=== PATIENT | female | born 1980 | race Caucasian/White ===

== ENCOUNTER 2024-08-28 11:28 | Outpatient (AMB) | payer OTHER, SELFPAY ==
--- NOTE | 2024-08-28 11:38 | MHC.PC.OV ---
Vital Signs 08/28/24 11:45 08/28/24 11:58 Height 4 ft 11.65 in Weight 329 lb 4 oz BMI 65.1 BP 194/115 H 192/106 H Blood Pressure Location Lt brachial Lt brachial Position Sitting Sitting Respiration 16 Pulse 62 Pulse Source Pulse Oximeter Pulse Oximetry (%) 98 Oxygen Delivery Method Room Air Intake Visit Reasons: est/ blood pressure meds est care Intake Note: New patient visit Allergies No Known Allergies Allergy (Verified 08/28/24 11:39) Tobacco use date assessed: 08/28/24 Dental Screening Dental Screen Date: 08/28/24 Did you have a dental visit in the last 12 months?: Yes Did you have a dental problem in the last 6 months where you did not have access to dental care?: No Was dental information given to patient?: Patient has dentist HPI HPI Comments History of Present Illness Details 44 year old female with a past medical history of hypertension, anxiety presenting to [facility] HTN: On metoprolol tartrate 100mg daily. When she was initially placed on BP medication her heart rate was high. no arrythmia. Blood pressure is markedly elevated today. No headaches or vision changes Anxiety/depression: On paxil. She has been out of medication for the past 3 weeks and has been feeling increasingly anxious History of anemia. History of heavy menses. 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 HEENT: Denies changes in vision and hearing. RESPIRATORY:cough x 2 weeks, head congestion CV: Denies palpitations and CP GI: Denies abdominal pain, nausea, vomiting and diarrhea. : Denies dysuria and urinary frequency. MSK: Denies new myalgia and joint pain. SKIN: Denies rash and pruritus. NEUROLOGICAL: Denies headache PSYCHIATRIC: Denies recent changes in mood. PHYSICAL EXAM: GENERAL: Alert and oriented x 3. NAD EYES: EOMI. Anicteric. HENT: Moist mucous membranes. No scleral icterus. No cervical lymphadenopathy. LUNGS: Clear to auscultation bilaterally. CARDIOVASCULAR: Regular rate and rhythm. No murmur. No JVD. ABDOMEN: Soft, non-tender +bs EXTREMITIES: No edema. Non-tender. SKIN: No rashes or lesions. Warm. NEUROLOGIC: No focal neurological deficits. CN II-XII grossly intact PSYCHIATRIC: Cooperative. Appropriate mood and affect [facility] Surgical History Status post osteotomy Social History Housing: House Alcohol intake: never Patient Tobacco Use Status: Never used Tobacco e-Cigarette/Vaping Use: Never Used Second Hand Smoke Exposure: No service: No Current occupational status: unemployed Cognitive needs: No Hearing needs: No Vision needs: Yes (glasses) Questionnaire PHQ-9 Over the last 2 weeks, how often have you been bothered by any of the following problems? 1. Little interest or pleasure in doing things: not at all 2. Feeling down, depressed, or hopeless: not at all 3. Trouble falling or staying asleep, or sleeping too much: not at all 4. Feeling tired or having little energy: not at all 5. Poor appetite or overeating: not at all 6. Feeling bad about yourself - or that you are a failure or have let yourself or your family down: not at all 7. Trouble concentrating on things, such as reading the newspaper or watching television: not at all 8. Moving or speaking so slowly that other people could have noticed. Or the opposite - being so fidgety or restless that you have been moving around a lot more than usual: not at all 9. Thoughts that you would be better off or of hurting yourself in some way: not at all Total score: 0 Depression Screening Interpretation: Negative Depression Screening Done: Yes 82415 - PHQ-9 Billing: Yes Source: Developed by Drs. Harshil Plascencia, Zofia Dela Cruz, Ildefonso Chambers and colleagues, with an educational samantha from [employer]. Thrive Questionnaire Date Thrive assessed: 08/21/24 I am a: Patient What is your living situation today?: I have a steady place to live Within the past 12 months, did the food you bought not last and you didn't have the money to get more?: I choose not to answer this question Within the past 12 months, did you worry whether your food would run out before you got money to buy more?: I choose not to answer this question Do you have trouble paying for medicines?: No Do you have trouble getting transportation to medical appointments?: No Do you have trouble paying your heating and electricity bill?: No Do you have trouble taking care of your child, family member or friend?: No Do you have trouble with day-to-day activities such as bathing, preparing meals, shopping, managing finances, etc.?: No Are you currently unemployed and looking for a job?: Yes Are you interested in more education?: Yes Please select the resources that you would like help with: None Currently or been in a relationship where the following occur: No concerns reported THRIVE Score: 0 AUDIT C Alcohol Use Questionnaire (AUDIT-C) 1. How often do you have a drink containing alcohol?: Never 2. How many drinks containing alcohol do you have on a typical day when you are drinking?: 1 or 2 3. How often do you have six or more drinks on one occasion?: Never Total Score: 0 JOHANNY-7 AMB Questionnaire JOHANNY-7 Date JOHANNY - 7 assessed: 08/28/24 Feeling nervous, anxious, or on edge: 3 = Nearly every day Not being able to stop or control worryin = Nearly every day Worrying too much about different things: 3 = Nearly every day Trouble relaxin = Nearly every day Being so restless that it is hard to sit still: 3 = Nearly every day Becoming easily annoyed or irritable: 3 = Nearly every day Feeling afraid as if something awful might happen: 3 = Nearly every day Total JOHANNY-7 score (0-4 normal; 5-9 mild; 10-14 moderate; 15-21 severe): 21 Source: Developed by Drs. Harshil Plascencia, Zofia Dela Cruz, Ildefonso Chambers and colleagues, with an educational samantha from [employer]. JOHANNY-7 Assessment Billing JOHANNY-7 Assessment Tool: JOHANNY-7 Assessment 57373 Physical exam (Primary Care) Vital Signs: Last Vital Signs Pulse 62 08/28/24 11:45 Resp 16 08/28/24 11:45 BP 194/115 H 08/28/24 11:45 Pulse Ox 98 08/28/24 11:45 Oxygen Delivery Method Room Air 08/28/24 11:45 BMI result Body Mass Index 65.1 Tobacco/Smoking Status: Tobacco use Status Tobacco use date assessed 08/28/24 08/28/24 11:41 Patient Tobacco Use Status Never used Tobacco 08/28/24 11:46 e-Cigarette/Vaping Use Never Used 08/28/24 11:46 PHQ-9: PHQ-9 Score PHQ-9: Total score 0 08/28/24 11:46 Depression Screening Interpretation: Negative Thrive Assessment: Date of Thrive Assessment Date Thrive assessed 08/21/24 08/28/24 11:41 Currently or been in a relationship where the following occur: No concerns reported Coding Level of Care Code Est Pt Level 4 (51465) Complex EM visit Add On G2211 Diagnoses Primary hypertension I10 Hypertension type: primary hypertension Anxiety F41.9 Additional Codes JOHANNY-7 Assessment Billing - JOHANNY-7 Assessment Tool: JOHANNY-7 Assessment 16492 ([id number]) PHQ-9 - 47304 - PHQ-9 Billing: Yes ([id number]) Assessment & Plan Assessment & Plan (1) Hypertension: Code(s): I10 - Essential (primary) hypertension Category: Medical Qualifiers: Hypertension type: primary hypertension Qualified Code(s): I10 - Essential (primary) hypertension Plan: Uncontrolled Badly needs to lose weight. Recommend consideration of GLP medication if insurance would approve For now switch metoprolol to atenolol. If BP remains high add amlodipine. Return in 2 weeks for follow up (2) Anxiety: Code(s): F41.9 - Anxiety disorder, unspecified Category: Medical Plan: Generally stable on paxil but has been out. Refilled today Orders: Orders Complete Blood Count Auto Diff Today F41.9 - Anxiety disorder, unspecified, I10 - Essential (primary) hypertension, R09.81 - Nasal congestion, Z13.228 - Encounter for screening for other metabolic disorders, Z86.2 - Personal history of diseases of the blood and blood-forming organs and certain disorders involving the immune mechanism TSH reflex Free T4 Today F41.9 - Anxiety disorder, unspecified, I10 - Essential (primary) hypertension, R09.81 - Nasal congestion, Z13.228 - Encounter for screening for other metabolic disorders, Z86.2 - Personal history of diseases of the blood and blood-forming organs and certain disorders involving the immune mechanism Hemoglobin A1c Today F41.9 - Anxiety disorder, unspecified, I10 - Essential (primary) hypertension, R09.81 - Nasal congestion, Z13.228 - Encounter for screening for other metabolic disorders, Z86.2 - Personal history of diseases of the blood and blood-forming organs and certain disorders involving the immune mechanism Comprehensive Met. Panel Today F41.9 - Anxiety disorder, unspecified, I10 - Essential (primary) hypertension, R09.81 - Nasal congestion, Z13.228 - Encounter for screening for other metabolic disorders, Z86.2 - Personal history of diseases of the blood and blood-forming organs and certain disorders involving the immune mechanism Lipid Panel Today F41.9 - Anxiety disorder, unspecified, I10 - Essential (primary) hypertension, R09.81 - Nasal congestion, Z13.228 - Encounter for screening for other metabolic disorders, Z86.2 - Personal history of diseases of the blood and blood-forming organs and certain disorders involving the immune mechanism Medications: Eduardo Ingram (semaglutide (weight loss)) administer weeks 1 through 4 of therapy 0.25 mg (0.5 mL) subcut QWEEK 2 mL 0RF NS paroxetine HCl 20 mg PO DAILY 90 tabs 3RF atenolol 50 mg PO DAILY 90 tabs 3RF amlodipine 5 mg PO DAILY 90 tabs 3RF azithromycin For 250 mg dose pack: take 500 mg today (day 1), then 250 mg for 4 days (days 2-5) PO 6 tabs 0RF
[2024-08-28 11:45] VITALS: BP 194/115; PULSE 62; RESP 16; O2SAT 98; BMI 65.1
[2024-08-28 11:58] VITALS: BP 192/106
== END 2024-08-28 12:13 | disposition home or self-care (01) ==
PROVIDERS: PCP Nurse Practitioner Family; Visit Provider Internal Medicine
DX: I10 Essential (primary) hypertension (principal); F41.9 Anxiety disorder, unspecified

== ENCOUNTER → 2024-08-28 11:28 | Outpatient (BNVA) | payer OTHER, SELFPAY | PROVIDERS: PCP Nurse Practitioner Family; Visit Provider Internal Medicine | DX: I10 Essential (primary) hypertension (principal); F41.9 Anxiety disorder, unspecified | CPT/HCPCS: 96127; 99212 ==

== ENCOUNTER 2024-09-11 08:45 | Outpatient (AMB) | payer OTHER, SELFPAY ==
--- NOTE | 2024-09-11 09:08 | MHC.PC.OV ---
Vital Signs 09/11/24 09:17 09/11/24 09:28 Height 4 ft 11.65 in Weight 329 lb BMI 65.0 BP 180/100 H 167/80 H Blood Pressure Location Rt brachial Lt brachial Position Sitting Sitting Pulse 61 Pulse Source Pulse Oximeter Pulse Oximetry (%) 98 Oxygen Delivery Method Room Air Intake Visit Reasons: f/u blood pressure Intake Note: HTN follow up Urogynaecologist Required: No Allergies No Known Allergies Allergy (Verified 09/11/24 09:16) Tobacco use date assessed: 08/28/24 Dental Screening Dental Screen Date: 08/28/24 HPI HPI Comments History of Present Illness Details 44 year old female with a past medical history of hypertension, anxiety presenting for follow up HTN: last visit metoprolol tartrate 100mg daily transitioned to atenolol 50mg daily. BP improved but still uncontrolled.. When she was initially placed on BP medication her heart rate was high. no arrythmia. Blood pressure is markedly elevated today. No headaches or vision changes Anxiety/depression: On paxil-stable. recently restarted, was out of medications. History of anemia. History of heavy menses. 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 HEENT: Denies changes in vision and hearing. RESPIRATORY:cough x 2 weeks, head congestion CV: Denies palpitations and CP GI: Denies abdominal pain, nausea, vomiting and diarrhea. : Denies dysuria and urinary frequency. MSK: Denies new myalgia and joint pain. SKIN: Denies rash and pruritus. NEUROLOGICAL: Denies headache PSYCHIATRIC: Denies recent changes in mood. PHYSICAL EXAM: GENERAL: Alert and oriented x 3. NAD EYES: EOMI. Anicteric. HENT: Moist mucous membranes. No scleral icterus. No cervical lymphadenopathy. LUNGS: Clear to auscultation bilaterally. CARDIOVASCULAR: Regular rate and rhythm. No murmur. No JVD. ABDOMEN: Soft, non-tender +bs EXTREMITIES: No edema. Non-tender. SKIN: No rashes or lesions. Warm. NEUROLOGIC: No focal neurological deficits. CN II-XII grossly intact PSYCHIATRIC: Cooperative. Appropriate mood and affect PFSH Surgical History Status post osteotomy Social History Housing: House Alcohol intake: never Patient Tobacco Use Status: Never used Tobacco e-Cigarette/Vaping Use: Never Used Second Hand Smoke Exposure: No service: No Current occupational status: unemployed Cognitive needs: No Hearing needs: No Vision needs: Yes (glasses) Questionnaire Thrive Questionnaire Date Thrive assessed: 08/21/24 I am a: Patient What is your living situation today?: I have a steady place to live Within the past 12 months, did the food you bought not last and you didn't have the money to get more?: I choose not to answer this question Within the past 12 months, did you worry whether your food would run out before you got money to buy more?: I choose not to answer this question Do you have trouble paying for medicines?: No Do you have trouble getting transportation to medical appointments?: No Do you have trouble paying your heating and electricity bill?: No Do you have trouble taking care of your child, family member or friend?: No Do you have trouble with day-to-day activities such as bathing, preparing meals, shopping, managing finances, etc.?: No Are you currently unemployed and looking for a job?: Yes Are you interested in more education?: Yes Please select the resources that you would like help with: None Currently or been in a relationship where the following occur: No concerns reported THRIVE Score: 0 JOHANNY-7 AMB Questionnaire JOHANNY-7 Date JOHANNY - 7 assessed: 08/28/24 Source: Developed by Drs. Harshil Plascnecia, Zofia Dela Cruz, Ildefonso Chambers and colleagues, with an educational samantha from [employer]. Physical exam (Primary Care) Vital Signs: Last Vital Signs Pulse 61 09/11/24 09:17 BP 167/80 H 09/11/24 09:28 Pulse Ox 98 09/11/24 09:17 Oxygen Delivery Method Room Air 09/11/24 09:17 BMI result Body Mass Index 65.0 Tobacco/Smoking Status: Tobacco use Status Tobacco use date assessed 08/28/24 09/11/24 09:13 Patient Tobacco Use Status Never used Tobacco 09/11/24 09:13 e-Cigarette/Vaping Use Never Used 09/11/24 09:13 Thrive Assessment: Date of Thrive Assessment Date Thrive assessed 08/21/24 09/11/24 09:13 Currently or been in a relationship where the following occur: No concerns reported Coding Level of Care Code Est Pt Level 4 (77812) Complex EM visit Add On G2211 Diagnoses Primary hypertension I10 Hypertension type: primary hypertension Anxiety F41.9 Assessment & Plan Assessment & Plan (1) Hypertension: Code(s): I10 - Essential (primary) hypertension Category: Medical Qualifiers: Hypertension type: primary hypertension Qualified Code(s): I10 - Essential (primary) hypertension Plan: improved but still uncontrolled Add amlodipine 5mg daily weight loss imperative. Hoping for GLP. She has started to exercise and decreased caloric intake without successful weight loss thus far (2) Anxiety: Code(s): F41.9 - Anxiety disorder, unspecified Category: Medical Plan: Improving back on Paxil Medications: New Zepbound (tirzepatide (weight loss)) for 4 weeks 2.5 mg (0.5 mL) subcut QWEEK 2 mL 3RF NS E66.9 - Obesity, unspecified, I10 - Essential (primary) hypertension Discontinued Wegovy (semaglutide (weight loss)) administer weeks 1 through 4 of therapy Discontinued Reason: Doctor's Order 0.25 mg (0.5 mL) subcut QWEEK 2 mL 0RF NS
[2024-09-11 09:17] VITALS: BP 180/100; PULSE 61; O2SAT 98; BMI 65.0
[2024-09-11 09:28] VITALS: BP 167/80
== END 2024-09-11 09:42 | disposition home or self-care (01) ==
PROVIDERS: PCP Internal Medicine; Visit Provider Internal Medicine
DX: I10 Essential (primary) hypertension (principal); F41.9 Anxiety disorder, unspecified

== ENCOUNTER → 2024-09-11 08:45 | Outpatient (BNVA) | payer OTHER, SELFPAY | PROVIDERS: PCP Internal Medicine; Visit Provider Internal Medicine | DX: I10 Essential (primary) hypertension (principal); F41.9 Anxiety disorder, unspecified | CPT/HCPCS: 99212 ==

== ENCOUNTER 2024-09-11 10:06 | Outpatient (REF) | payer OTHER, SELFPAY | END 2024-09-11 10:07 | disposition home or self-care (01) | LOC: HO.WFDLDS 10:06 | PROVIDERS: Visit Provider Internal Medicine | DX: Z13.89 Encounter for screening for other disorder (principal) ==

== ENCOUNTER 2024-09-28 11:11 | Outpatient (AMB) | payer OTHER, SELFPAY ==
--- NOTE | 2024-09-28 11:24 | A.OFFPC_ITS ---
Vital Signs 09/28/24 11:27 09/28/24 11:37 Height 4 ft 11.65 in Weight 327 lb 4 oz BMI 64.7 BP 156/77 H 141/77 H Blood Pressure Location Lt brachial Lt brachial Position Sitting Sitting Pulse 54 Pulse Source Pulse Oximeter Pulse Oximetry (%) 99 Oxygen Delivery Method Room Air Intake Visit Reasons: BP follow up Intake Note: Blood pressure follow up Cardiothoracic Surgeon Required: No Allergies No Known Allergies Allergy (Verified 09/28/24 11:27) Tobacco use date assessed: 08/28/24 Dental Screening Dental Screen Date: 08/28/24 HPI HPI Comments History of Present Illness Details 44 year old female with a past medical h istory of hypertension, anxiety presenting for follow up HTN: On atenolol 50mg daily, placed on amlodipine 5mg last visit. Much better control still uncontrolled. Making dietary and lifestlye efforts. Losing weight. Anxiety/depression: On paxil-stable. History of anemia. History of heavy menses. 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 HEENT: Denies changes in vision and hearing. RESPIRATORY:cough x 2 weeks, head congestion CV: Denies palpitations and CP GI: Denies abdominal pain, nausea, vomiting and diarrhea. : Denies dysuria and urinary frequency. MSK: Denies new myalgia and joint pain. SKIN: Denies rash and pruritus. NEUROLOGICAL: Denies headache PSYCHIATRIC: Denies recent changes in mood. PHYSICAL EXAM: GENERAL: Alert and oriented x 3. NAD EYES: EOMI. Anicteric. HENT: Moist mucous membranes. No scleral icterus. No cervical lymphadenopathy. LUNGS: Clear to auscultation bilaterally. CARDIOVASCULAR: Regular rate and rhythm. No murmur. No JVD. ABDOMEN: Soft, non-tender +bs EXTREMITIES: No edema. Non-tender. SKIN: No rashes or lesions. Warm. NEUROLOGIC: No focal neurological deficits. CN II-XII grossly intact PSYCHIATRIC: Cooperative. Appropriate mood and affect [facility] Surgical History Status post osteotomy Social History Housing: House Alcohol intake: never Patient Tobacco Use Status: Never used Tobacco e-Cigarette/Vaping Use: Never Used Second Hand Smoke Exposure: No service: No Current occupational status: unemployed Cognitive needs: No Hearing needs: No Vision needs: Yes (glasses) Questionnaire Thrive Questionnaire Date Thrive assessed: 08/21/24 I am a: Patient What is your living situation today?: I have a steady place to live Within the past 12 months, did the food you bought not last and you didn't have the money to get more?: I choose not to answer this question Within the past 12 months, did you worry whether your food would run out before you got money to buy more?: I choose not to answer this question Do you have trouble paying for medicines?: No Do you have trouble getting transportation to medical appointments?: No Do you have trouble paying your heating and electricity bill?: No Do you have trouble taking care of your child, family member or friend?: No Do you have trouble with day-to-day activities such as bathing, preparing meals, shopping, managing finances, etc.?: No Are you currently unemployed and looking for a job?: Yes Are you interested in more education?: Yes Please select the resources that you would like help with: None Currently or been in a relationship where the following occur: No concerns reported THRIVE Score: 0 JOHANNY-7 AMB Questionnaire JOHANNY-7 Date JOHANNY - 7 assessed: 08/28/24 Source: Developed by Drs. Harshil Plascencia, Zofia Dela Cruz, Ildefonso Chambers and colleagues, with an educational samantha from [employer]. Physical exam (Primary Care) Vital Signs: Last Vital Signs Pulse 54 09/28/24 11:27 BP 141/77 H 09/28/24 11:37 Pulse Ox 99 09/28/24 11:27 Oxygen Delivery Method Room Air 09/28/24 11:27 BMI result Body Mass Index 64.7 Tobacco/Smoking Status: Tobacco use Status Tobacco use date assessed 08/28/24 09/28/24 11:25 Patient Tobacco Use Status Never used Tobacco 09/28/24 11:25 e-Cigarette/Vaping Use Never Used 09/28/24 11:25 Thrive Assessment: Date of Thrive Assessment Date Thrive assessed 08/21/24 09/28/24 11:25 Currently or been in a relationship where the following occur: No concerns reported Coding Level of Care Code Est Pt Level 4 (45170) Diagnoses Primary hypertension I10 Hypertension type: primary hypertension Anxiety F41.9 Assessment & Plan Assessment & Plan (1) Hypertension: Code(s): I10 - Essential (primary) hypertension Category: Medical Qualifiers: Hypertension type: primary hypertension Qualified Code(s): I10 - Essential (primary) hypertension Plan: Improving control. No edema with current dose of norvasc will increase to 10mg daily. Nataly sent-recently approved (2) Anxiety: Code(s): F41.9 - Anxiety disorder, unspecified Category: Medical Plan: stable on paxil Medications: New amlodipine 10 mg PO DAILY 90 tabs 3RF
[2024-09-28 11:27] VITALS: BP 156/77; PULSE 54; O2SAT 99; BMI 64.7
[2024-09-28 11:37] VITALS: BP 141/77
== END 2024-09-28 12:05 | disposition home or self-care (01) ==
PROVIDERS: PCP Internal Medicine; Visit Provider Internal Medicine
DX: I10 Essential (primary) hypertension (principal); F41.9 Anxiety disorder, unspecified

== ENCOUNTER → 2024-09-28 11:11 | Outpatient (BNVA) | payer OTHER, SELFPAY | PROVIDERS: PCP Internal Medicine; Visit Provider Internal Medicine | DX: I10 Essential (primary) hypertension (principal); F41.9 Anxiety disorder, unspecified | CPT/HCPCS: 99212 ==

== ENCOUNTER 2024-10-30 09:00 | Outpatient (AMB) | payer OTHER, SELFPAY ==
--- NOTE | 2024-10-30 09:10 | MHC.PC.OV ---
Vital Signs 10/30/24 09:15 10/30/24 09:25 Height 4 ft 11.65 in Weight 321 lb BMI 63.4 BP 171/87 H 178/90 H Blood Pressure Location Lt brachial Lt brachial Position Sitting Sitting Pulse 79 Pulse Source Pulse Oximeter Pulse Oximetry (%) 97 Oxygen Delivery Method Room Air Intake Visit Reasons: BP follow up Intake Note: Blood pressure follow. Plan was to take Wegovy, but it needed a prior auth. The pharmacy ran the Zepbound and insurance ended up approving it. She will start on Saturday. 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 Making dietary and lifestlye efforts. Losing weight-6 pounds since last visit. Was on wegovy x 2 months now insurance covering [employer] Anxiety/depression: On paxil-stable. History of anemia. History of heavy menses. 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 HEENT: Denies changes in vision and hearing. RESPIRATORY:cough x 2 weeks, head congestion CV: Denies palpitations and CP GI: Denies abdominal pain, nausea, vomiting and diarrhea. : Denies dysuria and urinary frequency. MSK: Denies new myalgia and joint pain. SKIN: Denies rash and pruritus. NEUROLOGICAL: Denies headache PSYCHIATRIC: Denies recent changes in mood. PHYSICAL EXAM: GENERAL: Alert and oriented x 3. NAD EYES: EOMI. Anicteric. HENT: Moist mucous membranes. No scleral icterus. No cervical lymphadenopathy. LUNGS: Clear to auscultation bilaterally. CARDIOVASCULAR: Regular rate and rhythm. No murmur. No JVD. ABDOMEN: Soft, non-tender +bs EXTREMITIES: No edema. Non-tender. SKIN: No rashes or lesions. Warm. NEUROLOGIC: No focal neurological deficits. CN II-XII grossly intact PSYCHIATRIC: Cooperative. Appropriate mood and affect [facility] Surgical History Status post osteotomy Social History Housing: House Alcohol intake: never Patient Tobacco Use Status: Never used Tobacco e-Cigarette/Vaping Use: Never Used Second Hand Smoke Exposure: No service: No Current occupational status: unemployed Cognitive needs: No Hearing needs: No Vision needs: Yes (glasses) Questionnaire PHQ-9 Over the last 2 weeks, how often have you been bothered by any of the following problems? 1. Little interest or pleasure in doing things: not at all 2. Feeling down, depressed, or hopeless: not at all 3. Trouble falling or staying asleep, or sleeping too much: not at all 4. Feeling tired or having little energy: not at all 5. Poor appetite or overeating: not at all 6. Feeling bad about yourself - or that you are a failure or have let yourself or your family down: not at all 7. Trouble concentrating on things, such as reading the newspaper or watching television: not at all 8. Moving or speaking so slowly that other people could have noticed. Or the opposite - being so fidgety or restless that you have been moving around a lot more than usual: not at all 9. Thoughts that you would be better off or of hurting yourself in some way: not at all Total score: 0 Depression Screening Interpretation: Negative Depression Screening Done: Yes 68227 - PHQ-9 Billing: Yes Source: Developed by Drs. Harshil Plascencia, Zofia Dela Cruz, Ildefonso Chambers and colleagues, with an educational samantha from [employer]. Thrive Questionnaire Date Thrive assessed: 10/23/24 I am a: Patient What is your living situation today?: I have a steady place to live Within the past 12 months, did the food you bought not last and you didn't have the money to get more?: Never true Within the past 12 months, did you worry whether your food would run out before you got money to buy more?: Never true Do you have trouble paying for medicines?: No Do you have trouble getting transportation to medical appointments?: No Do you have trouble paying your heating and electricity bill?: No Do you have trouble taking care of your child, family member or friend?: No Do you have trouble with day-to-day activities such as bathing, preparing meals, shopping, managing finances, etc.?: No Are you currently unemployed and looking for a job?: Yes Are you interested in more education?: Yes Please select the resources that you would like help with: None Currently or been in a relationship where the following occur: No concerns reported THRIVE Score: 0 AUDIT C Alcohol Use Questionnaire (AUDIT-C) 1. How often do you have a drink containing alcohol?: Never 2. How many drinks containing alcohol do you have on a typical day when you are drinking?: 1 or 2 3. How often do you have six or more drinks on one occasion?: Never Total Score: 0 JOHANNY-7 AMB Questionnaire JOHANNY-7 Date JOHANNY - 7 assessed: 08/28/24 Feeling nervous, anxious, or on edge: 0 = Not at all Not being able to stop or control worryin = Not at all Worrying too much about different things: 0 = Not at all Trouble relaxin = Not at all Being so restless that it is hard to sit still: 0 = Not at all Becoming easily annoyed or irritable: 0 = Not at all Feeling afraid as if something awful might happen: 0 = Not at all Total JOHANNY-7 score (0-4 normal; 5-9 mild; 10-14 moderate; 15-21 severe): 0 Source: Developed by Drs. Harshil Plascencia, Zofia Dela Cruz, Ildefonso Chambers and colleagues, with an educational samantha from [employer]. Physical exam (Primary Care) Vital Signs: Last Vital Signs Pulse 79 10/30/24 09:15 BP 178/90 H 10/30/24 09:25 Pulse Ox 97 10/30/24 09:15 Oxygen Delivery Method Room Air 10/30/24 09:15 BMI result Body Mass Index 63.4 Tobacco/Smoking Status: Tobacco use Status Tobacco use date assessed 08/28/24 10/30/24 09:18 Patient Tobacco Use Status Never used Tobacco 10/30/24 09:18 e-Cigarette/Vaping Use Never Used 10/30/24 09:18 PHQ-9: PHQ-9 Score PHQ-9: Total score 0 10/30/24 09:25 Depression Screening Interpretation: Negative Thrive Assessment: Date of Thrive Assessment Date Thrive assessed 10/23/24 10/30/24 09:18 Currently or been in a relationship where the following occur: No concerns reported Coding Level of Care Code Est Pt Level 4 (92308) Diagnoses Primary hypertension I10 Hypertension type: primary hypertension Obesity due to excess calories with serious comorbidity, unspecified class E66.09 Obesity type: due to excess calories Obesity classification: unspecified obesity classification Serious obesity comorbidity presence: with serious comorbidity Anxiety F41.9 Additional Codes PHQ-9 - 39150 - PHQ-9 Billing: Yes ([id number]) Assessment & Plan Assessment & Plan (1) Hypertension: Code(s): I10 - Essential (primary) hypertension Category: Medical Qualifiers: Hypertension type: primary hypertension Qualified Code(s): I10 - Essential (primary) hypertension Plan: Higher today, controlled at home (2) Obesity: Comment: BMI 65 Code(s): E66.9 - Obesity, unspecified Category: Medical Qualifiers: Obesity type: due to excess calories Obesity classification: unspecified obesity classification Serious obesity comorbidity presence: with serious comorbidity Qualified Code(s): E66.09 - Other obesity due to excess calories Plan: continue GLP1 (3) Anxiety: Code(s): F41.9 - Anxiety disorder, unspecified Category: Medical Plan: stable on paxil Medications: Discontinued amlodipine Discontinued Reason: Doctor's Order 5 mg PO DAILY 90 tabs 3RF
[2024-10-30 09:15] VITALS: BP 171/87; PULSE 79; O2SAT 97; BMI 63.4
[2024-10-30 09:25] VITALS: BP 178/90
== END 2024-10-30 09:48 | disposition home or self-care (01) ==
PROVIDERS: PCP Internal Medicine; Visit Provider Internal Medicine
DX: I10 Essential (primary) hypertension (principal); E66.09 Other obesity due to excess calories; Z68.44 Body mass index [BMI] 60.0-69.9, adult; F41.9 Anxiety disorder, unspecified

== ENCOUNTER → 2024-10-30 09:00 | Outpatient (BNVA) | payer OTHER, SELFPAY | PROVIDERS: PCP Internal Medicine; Visit Provider Internal Medicine | DX: I10 Essential (primary) hypertension (principal); E66.09 Other obesity due to excess calories; Z68.44 Body mass index [BMI] 60.0-69.9, adult; F41.9 Anxiety disorder, unspecified; F32.A Depression, unspecified; Z79.899 Other long term (current) drug therapy | CPT/HCPCS: 96127; 99212 ==

== ENCOUNTER 2024-12-01 10:12 | Outpatient (AMB) | payer OTHER, SELFPAY ==
--- NOTE | 2024-12-01 10:31 | MHC.PC.OV ---
Vital Signs 12/01/24 10:34 12/01/24 10:38 Height 4 ft 11.65 in Weight 320 lb 6 oz BMI 63.3 BP 140/66 H 124/65 Blood Pressure Location Rt brachial Rt brachial Position Sitting Sitting Respiration 18 Pulse 59 Pulse Source Pulse Oximeter Pulse Oximetry (%) 99 Oxygen Delivery Method Room Air Intake Visit Reasons: bp/weight follow up Intake Note: Follow up blood pressure Allergies No Known Allergies Allergy (Verified 12/01/24 10:34) Tobacco use date assessed: 12/01/24 Dental Screening Dental Screen Date: 08/28/24 HPI HPI Comments History of Present Illness Details 44 year old female with a past medical history of hypertension, anxiety presenting for follow up HTN: On atenolol 50mg daily, amlodipine 10mg daily. Making dietary and lifestlye efforts. Losing weight-10 pounds overall. Started zepbound x 4 injections. She has had trouble picking up her next script ? required additional PA? She was on wegovy x 2 months then insurance changed formulary Anxiety/depression: On paxil-stable. History of anemia. History of heavy menses. Continues iron supplement. 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 HEENT: Denies changes in vision and hearing. RESPIRATORY:cough x 2 weeks, head congestion CV: Denies palpitations and CP GI: Denies abdominal pain, nausea, vomiting and diarrhea. : Denies dysuria and urinary frequency. MSK: Denies new myalgia and joint pain. SKIN: Denies rash and pruritus. NEUROLOGICAL: Denies headache PSYCHIATRIC: Denies recent changes in mood. PHYSICAL EXAM: GENERAL: Alert and oriented x 3. NAD EYES: EOMI. Anicteric. HENT: Moist mucous membranes. No scleral icterus. No cervical lymphadenopathy. LUNGS: Clear to auscultation bilaterally. CARDIOVASCULAR: Regular rate and rhythm. No murmur. No JVD. ABDOMEN: Soft, non-tender +bs EXTREMITIES: No edema. Non-tender. SKIN: No rashes or lesions. Warm. NEUROLOGIC: No focal neurological deficits. CN II-XII grossly intact PSYCHIATRIC: Cooperative. Appropriate mood and affect [facility] Surgical History Status post osteotomy Social History Housing: House Alcohol intake: never Patient Tobacco Use Status: Never used Tobacco e-Cigarette/Vaping Use: Never Used Second Hand Smoke Exposure: No service: No Current occupational status: unemployed Cognitive needs: No Hearing needs: No Vision needs: Yes (glasses) Questionnaire Thrive Questionnaire Date Thrive assessed: 10/23/24 I am a: Patient What is your living situation today?: I have a steady place to live Within the past 12 months, did the food you bought not last and you didn't have the money to get more?: Never true Within the past 12 months, did you worry whether your food would run out before you got money to buy more?: Never true Do you have trouble paying for medicines?: No Do you have trouble getting transportation to medical appointments?: No Do you have trouble paying your heating and electricity bill?: No Do you have trouble taking care of your child, family member or friend?: No Do you have trouble with day-to-day activities such as bathing, preparing meals, shopping, managing finances, etc.?: No Are you currently unemployed and looking for a job?: Yes Are you interested in more education?: Yes Please select the resources that you would like help with: None Currently or been in a relationship where the following occur: No concerns reported THRIVE Score: 0 JOHANNY-7 AMB Questionnaire JOHANNY-7 Date JOHANNY - 7 assessed: 08/28/24 Source: Developed by Drs. Harshil Plascencia, Zofia Dela Cruz, Ildefonso Chambers and colleagues, with an educational samantha from [employer]. Physical exam (Primary Care) Vital Signs: Last Vital Signs Pulse 59 12/01/24 10:34 Resp 18 12/01/24 10:34 BP 124/65 12/01/24 10:38 Pulse Ox 99 12/01/24 10:34 Oxygen Delivery Method Room Air 12/01/24 10:34 BMI result Body Mass Index 63.3 Tobacco/Smoking Status: Tobacco use Status Tobacco use date assessed 12/01/24 12/01/24 10:41 Patient Tobacco Use Status Never used Tobacco 12/01/24 10:41 e-Cigarette/Vaping Use Never Used 12/01/24 10:41 Thrive Assessment: Date of Thrive Assessment Date Thrive assessed 10/23/24 12/01/24 10:33 Currently or been in a relationship where the following occur: No concerns reported Coding Level of Care Code Est Pt Level 4 (36396) Complex EM visit Add On G2211 Diagnoses Primary hypertension I10 Hypertension type: primary hypertension Obesity due to excess calories with serious comorbidity, unspecified class E66.09 Obesity type: due to excess calories Obesity classification: unspecified obesity classification Serious obesity comorbidity presence: with serious comorbidity Assessment & Plan Assessment & Plan (1) Hypertension: Code(s): I10 - Essential (primary) hypertension Category: Medical Qualifiers: Hypertension type: primary hypertension Qualified Code(s): I10 - Essential (primary) hypertension Plan: well controlled on current medication (2) Obesity: Comment: BMI 65 Code(s): E66.9 - Obesity, unspecified Category: Medical Qualifiers: Obesity type: due to excess calories Obesity classification: unspecified obesity classification Serious obesity comorbidity presence: with serious comorbidity Qualified Code(s): E66.09 - Other obesity due to excess calories Plan: continue GLP. Tolerating & helping with weight loss which is in turn helping with BP Medications: New Zepbound (tirzepatide (weight loss)) 5 mg (0.5 mL) subcut QWEEK 2 mL 3RF NS E66.09 - Other obesity due to excess calories, I10 - Essential (primary) hypertension
[2024-12-01 10:34] VITALS: BP 140/66; PULSE 59; RESP 18; O2SAT 99; BMI 63.3
[2024-12-01 10:38] VITALS: BP 124/65
== END 2024-12-01 11:10 | disposition home or self-care (01) ==
PROVIDERS: PCP Internal Medicine; Visit Provider Internal Medicine
DX: I10 Essential (primary) hypertension (principal); E66.09 Other obesity due to excess calories; Z68.44 Body mass index [BMI] 60.0-69.9, adult

== ENCOUNTER → 2024-12-01 10:12 | Outpatient (BNVA) | payer OTHER, SELFPAY | PROVIDERS: PCP Internal Medicine; Visit Provider Internal Medicine ==

== ENCOUNTER 2024-12-01 11:04 | Outpatient (REF) | payer OTHER, SELFPAY ==
[2024-12-01 14:13] LABS: MANUAL DIFF FLAG NO
[2024-12-01 14:17] LABS: Basophils Absolute Auto 0.1 X10*3/uL (0.0-0.2); Eosinophils Absolute Auto 0.4 X10*3/uL (0.0-0.4); Eosinophils Percent Auto 6.7 % (0-4); Hemoglobin 13.5 g/dl (12.0-16.0); Imm Gran Abs Auto 0.03 X10*3/uL (0.00-0.03); Imm Gran Pct Auto 0.5 % (0.0-0.4); Lymphocytes Absolute Auto 1.5 X10*3/uL (1.2-4.9); Lymphocytes Percent Auto 23.1 % (20-40); Mean Corpuscular HGB Conc 32.9 g/dl (31.0-35.0); Mean Corpuscular Hemoglobin 29.2 pg (27.0-33.0); Mean Corpuscular Volume 88.7 fL (80.0-98.0); Mean Platelet Volume 11.3 fL (9.4-12.3); Monocytes Absolute Auto 0.5 X10*3/uL (0.1-1.2); Neutrophils Percent Auto 60.7 % (45-73); Platelet Count 235 X10*3/uL (160-400); Red Blood Count 4.62 X10*6/uL (4.20-5.50); White Blood Count 6.6 X10*3/uL (4.8-10.8)
[2024-12-01 14:43] LABS: Alanine Aminotransferase 21 U/L (0-31); Alkaline Phosphatase 89 U/L (39-117); Anion Gap 12 (12-20); Aspartate Amino Transferase 46 U/L (5-31); Bilirubin Total 0.4 mg/dL (0.0-1.0); Blood Urea Nitrogen 16 mg/dL (9-16); Calcium 9.6 mg/dL (8.4-10.2); Carbon Dioxide 22 mmol/L (22-29); Chloride 109 mmol/L (96-108); Cholesterol 148 mg/dL (<200); Estimated Glomerular Filt Rate > 60; Glucose Random 93 mg/dL (60-115); HDL Cholesterol 37 mg/dL (>40); LDL Cholesterol Calculated 78 mg/dL (<100); Potassium 4.8 mmol/L (3.3-5.1); Sodium 138 mmol/L (135-145); Total Protein 7.6 g/dL (6.5-8.0); Triglycerides 168 mg/dL (<150)
[2024-12-01 14:49] LABS: Estimated Average Glucose 111 mg/dL; Hemoglobin A1C 131.1631 umol/L; Hemoglobin A1c % 5.5 % (<6.0)
== END 2024-12-01 11:05 | disposition home or self-care (01) ==
LOC: HO.WFDLDS 11:04
PROVIDERS: Visit Provider Internal Medicine
DX: I10 Essential (primary) hypertension (principal); E66.09 Other obesity due to excess calories; Z68.44 Body mass index [BMI] 60.0-69.9, adult; F41.9 Anxiety disorder, unspecified; R09.81 Nasal congestion; Z13.228 Encounter for screening for other metabolic disorders; Z86.2 Personal history of diseases of the blood and blood-forming organs and certain disorders involving the immune mechanism
CPT/HCPCS: 36415; 80053; 80061; 83036; 84443; 85025; 99212

== ENCOUNTER 2025-03-02 09:49 | Outpatient (AMB) | payer OTHER, SELFPAY ==
[2025-03-02 10:14] VITALS: BP 140/89; PULSE 79; RESP 16; O2SAT 98; BMI 61.1
--- NOTE | 2025-03-02 10:14 | MHC.PC.OV ---
Vital Signs 03/02/25 10:14 03/02/25 10:22 Height 4 ft 11.65 in Weight 309 lb BMI 61.1 BP 140/89 H 127/72 Blood Pressure Location Lt brachial Lt brachial Position Sitting Sitting Respiration 16 Pulse 79 Pulse Source Pulse Oximeter Pulse Oximetry (%) 98 Oxygen Delivery Method Room Air Intake Visit Reasons: bp weight follow up Intake Note: Blood pressure and weight loss weight follow up Child Attendant Required: No Allergies No Known Allergies Allergy (Verified 03/02/25 10:15) Tobacco use date assessed: 12/01/24 Dental Screening Dental Screen Date: 08/28/24 HPI HPI Comments History of Present Illness Details 44 year old female with a past medical history of hypertension, anxiety presenting for follow up HTN: On atenolol 50mg daily, amlodipine 10mg daily. Blood pressure is well controlled on current medications. Making dietary and lifestlye efforts. She went 329 to 309 pounds. Doing well on zepbound 5mg daily. Anxiety/depression: On paxil-stable. History of anemia. History of heavy menses. Continues iron supplement. 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 HEENT: Denies changes in vision and hearing. RESPIRATORY:cough x 2 weeks, head congestion CV: Denies palpitations and CP GI: Denies abdominal pain, nausea, vomiting and diarrhea. : Denies dysuria and urinary frequency. MSK: Denies new myalgia and joint pain. SKIN: Denies rash and pruritus. NEUROLOGICAL: Denies headache PSYCHIATRIC: Denies recent changes in mood. PHYSICAL EXAM: GENERAL: Alert and oriented x 3. NAD EYES: EOMI. Anicteric. HENT: Moist mucous membranes. No scleral icterus. No cervical lymphadenopathy. LUNGS: Clear to auscultation bilaterally. CARDIOVASCULAR: Regular rate and rhythm. No murmur. No JVD. ABDOMEN: Soft, non-tender +bs EXTREMITIES: No edema. Non-tender. SKIN: No rashes or lesions. Warm. NEUROLOGIC: No focal neurological deficits. CN II-XII grossly intact PSYCHIATRIC: Cooperative. Appropriate mood and affect [facility] Surgical History Status post osteotomy Social History Housing: House Alcohol intake: never Patient Tobacco Use Status: Never used Tobacco e-Cigarette/Vaping Use: Never Used Second Hand Smoke Exposure: No service: No Current occupational status: unemployed Cognitive needs: No Hearing needs: No Vision needs: Yes (glasses) Questionnaire Thrive Questionnaire Date Thrive assessed: 10/23/24 I am a: Patient What is your living situation today?: I have a steady place to live Within the past 12 months, did the food you bought not last and you didn't have the money to get more?: Never true Within the past 12 months, did you worry whether your food would run out before you got money to buy more?: Never true Do you have trouble paying for medicines?: No Do you have trouble getting transportation to medical appointments?: No Do you have trouble paying your heating and electricity bill?: No Do you have trouble taking care of your child, family member or friend?: No Do you have trouble with day-to-day activities such as bathing, preparing meals, shopping, managing finances, etc.?: No Are you currently unemployed and looking for a job?: Yes Are you interested in more education?: Yes Please select the resources that you would like help with: None Currently or been in a relationship where the following occur: No concerns reported THRIVE Score: 0 JOHANNY-7 AMB Questionnaire JOHANNY-7 Date JOHANNY - 7 assessed: 08/28/24 Source: Developed by Drs. Harshil Plascencia, Zofia Dela Cruz, Ildefonso Chambers and colleagues, with an educational samantha from [employer]. Physical exam (Primary Care) Vital Signs: Last Vital Signs Pulse 79 03/02/25 10:14 Resp 16 03/02/25 10:14 BP 140/89 H 03/02/25 10:14 Pulse Ox 98 03/02/25 10:14 Oxygen Delivery Method Room Air 03/02/25 10:14 BMI result Body Mass Index 61.1 Tobacco/Smoking Status: Tobacco use Status Tobacco use date assessed 12/01/24 03/02/25 10:19 Patient Tobacco Use Status Never used Tobacco 03/02/25 10:19 e-Cigarette/Vaping Use Never Used 03/02/25 10:19 Thrive Assessment: Date of Thrive Assessment Date Thrive assessed 10/23/24 03/02/25 10:19 Currently or been in a relationship where the following occur: No concerns reported Coding Level of Care Code Est Pt Level 4 (11830) Diagnoses Primary hypertension I10 Hypertension type: primary hypertension Anxiety F41.9 History of anemia Z86.2 Obesity due to excess calories with serious comorbidity, unspecified class E66.09 Obesity type: due to excess calories Obesity classification: unspecified obesity classification Serious obesity comorbidity presence: with serious comorbidity Assessment & Plan Assessment & Plan (1) Hypertension: Code(s): I10 - Essential (primary) hypertension Category: Medical Qualifiers: Hypertension type: primary hypertension Qualified Code(s): I10 - Essential (primary) hypertension (2) Anxiety: Code(s): F41.9 - Anxiety disorder, unspecified Category: Medical (3) History of anemia: Code(s): Z86.2 - Personal history of diseases of the blood and blood-forming organs and certain disorders involving the immune mechanism Category: Medical (4) Obesity: Comment: BMI 65 Code(s): E66.9 - Obesity, unspecified Category: Medical Qualifiers: Obesity type: due to excess calories Obesity classification: unspecified obesity classification Serious obesity comorbidity presence: with serious comorbidity Qualified Code(s): E66.09 - Other obesity due to excess calories Plan 44 year old for follow up obesity, htn HTN is well controlled on current medications. continue Obesity-continues weight loss. Congratulated on efforts Orders: Orders Comprehensive Met. Panel Today F41.9 - Anxiety disorder, unspecified, I10 - Essential (primary) hypertension
[2025-03-02 10:22] VITALS: BP 127/72
== END 2025-03-02 10:29 | disposition home or self-care (01) ==
LOC: HO.HMCFM 09:50
PROVIDERS: PCP Internal Medicine; Visit Provider Internal Medicine
DX: I10 Essential (primary) hypertension (principal); E66.09 Other obesity due to excess calories; Z68.44 Body mass index [BMI] 60.0-69.9, adult; Z86.2 Personal history of diseases of the blood and blood-forming organs and certain disorders involving the immune mechanism; F41.9 Anxiety disorder, unspecified

== ENCOUNTER → 2025-03-02 09:49 | Outpatient (BNVA) | payer OTHER, SELFPAY | PROVIDERS: PCP Internal Medicine; Visit Provider Internal Medicine | DX: I10 Essential (primary) hypertension (principal); F41.9 Anxiety disorder, unspecified; E66.09 Other obesity due to excess calories; Z68.44 Body mass index [BMI] 60.0-69.9, adult; Z86.2 Personal history of diseases of the blood and blood-forming organs and certain disorders involving the immune mechanism | CPT/HCPCS: 99212 ==

== ENCOUNTER 2025-10-04 10:08 | Outpatient (AMB) | payer OTHER, SELFPAY ==
--- NOTE | 2025-10-04 10:20 | A.OFFPC_ITS ---
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 Blood pressure is well controlled on current medications. Making dietary and lifestlye efforts. She went 329 to 309 pounds to 296. Feels stalled on zepbound 5mg daily. Anxiety/depression: On paxil-stable. She is going to try and decrease to 10mg for a month and potentially none if she is still feeling ok History of anemia. History of heavy menses. Continues iron supplement. Mammo: due [employer] Buffer: Dr Morrison-referral placed ROS CONSTITUTIONAL: Denies weight loss, fever and chills. HEENT: Denies changes in vision and hearing. RESPIRATORY:Denies shortness of breath CV: Denies palpitations and CP GI: Denies abdominal pain, nausea, vomiting and diarrhea. : Denies dysuria and urinary frequency. MSK: Denies new myalgia and joint pain. SKIN: Denies rash and pruritus. NEUROLOGICAL: Denies headache PSYCHIATRIC: Denies recent changes in mood. PHYSICAL EXAM: GENERAL: Alert and oriented x 3. NAD EYES: EOMI. Anicteric. HENT: Moist mucous membranes. No scleral icterus. No cervical lymphadenopathy. LUNGS: Clear to auscultation bilaterally. CARDIOVASCULAR: Regular rate and rhythm. No murmur. No JVD. ABDOMEN: Soft, non-tender +bs EXTREMITIES: No edema. Non-tender. SKIN: No rashes or lesions. Warm. NEUROLOGIC: No focal neurological deficits. CN II-XII grossly intact PSYCHIATRIC: Cooperative. Appropriate mood and affect [facility] Surgical History Status post osteotomy Social History Housing: House Alcohol intake: never Patient Tobacco Use Status: Never used Tobacco e-Cigarette/Vaping Use: Never Used Second Hand Smoke Exposure: No service: No Current occupational status: unemployed Cognitive needs: No Hearing needs: No Vision needs: Yes (glasses) Questionnaire Thrive Questionnaire Date Thrive assessed: 10/23/24 I am a: Patient What is your living situation today?: I have a steady place to live Within the past 12 months, did the food you bought not last and you didn't have the money to get more?: Never true Within the past 12 months, did you worry whether your food would run out before you got money to buy more?: Never true Do you have trouble paying for medicines?: No Do you have trouble getting transportation to medical appointments?: No Do you have trouble paying your heating and electricity bill?: No Do you have trouble taking care of your child, family member or friend?: No Do you have trouble with day-to-day activities such as bathing, preparing meals, shopping, managing finances, etc.?: No Are you currently unemployed and looking for a job?: Yes Are you interested in more education?: Yes Currently or been in a relationship where the following occur: No concerns reported THRIVE Score: 0 AUDIT C Alcohol Use Questionnaire (AUDIT-C) 1. How often do you have a drink containing alcohol?: Never 3. How often do you have six or more drinks on one occasion?: Never Total Score: 0 JOHANNY-7 AMB Questionnaire JOHANNY-7 Date JOHANNY - 7 assessed: 08/28/24 Source: Developed by Drs. Harshil Plascencia, Zofia Dela Cruz, Ildefonso Chambers and colleagues, with an educational samantha from [employer] Physical exam (Primary Care) Vital Signs: Last Vital Signs Temp 98.2 F 10/04/25 10:21 Pulse 64 10/04/25 10:21 Resp 16 10/04/25 10:21 BP 136/81 10/04/25 10:29 Pulse Ox 99 10/04/25 10:21 Oxygen Delivery Method Room Air 10/04/25 10:21 BMI result Body Mass Index 58.5 Tobacco/Smoking Status: Tobacco use Status Tobacco use date assessed 10/04/25 10/04/25 10:29 Patient Tobacco Use Status Never used Tobacco 10/04/25 10:29 e-Cigarette/Vaping Use Never Used 10/04/25 10:29 Thrive Assessment: Date of Thrive Assessment Date Thrive assessed 10/23/24 10/04/25 10:29 Currently or been in a relationship where the following occur: No concerns reported Coding Level of Care Code Est Pt Level 4 (26576) Diagnoses Physical exam Z00.00 Obesity due to excess calories with serious comorbidity, unspecified class E66.09 Obesity type: due to excess calories Obesity classification: unspecified obesity classification Serious obesity comorbidity presence: with serious comorbidity Primary hypertension I10 Hypertension type: primary hypertension Assessment & Plan Assessment & Plan (1) Physical exam: Code(s): Z00.00 - Encounter for general adult medical examination without abnormal findings (2) Obesity: Comment: BMI 65 Code(s): E66.9 - Obesity, unspecified Category: Medical Qualifiers: Obesity type: due to excess calories Obesity classification: unspecified obesity classification Serious obesity comorbidity presence: with serious comorbidity Qualified Code(s): E66.09 - Other obesity due to excess calories (3) Hypertension: Code(s): I10 - Essential (primary) hypertension Category: Medical Qualifiers: Hypertension type: primary hypertension Qualified Code(s): I10 - Essential (primary) hypertension Plan CPE-45 year old female for CPE Interval history reviewed Preventive measures for age discussed Labs ordered Obesity-improving bmi-stalled on 5mg zepbound Orders: Orders Complete Blood Count Auto Diff Today E66.09 - Other obesity due to excess calories, F41.9 - Anxiety disorder, unspecified, I10 - Essential (primary) hypertension, Z13.228 - Encounter for screening for other metabolic disorders, Z86.2 - Personal history of diseases of the blood and blood-forming organs and certain disorders involving the immune mechanism Comprehensive Met. Panel Today E66.09 - Other obesity due to excess calories, F41.9 - Anxiety disorder, unspecified, I10 - Essential (primary) hypertension, Z13.228 - Encounter for screening for other metabolic disorders, Z86.2 - Personal history of diseases of the blood and blood-forming organs and certain disorders involving the immune mechanism Lipid Panel Today E66.09 - Other obesity due to excess calories, F41.9 - Anxiety disorder, unspecified, I10 - Essential (primary) hypertension, Z13.228 - Encounter for screening for other metabolic disorders, Z86.2 - Personal history of diseases of the blood and blood-forming organs and certain disorders involving the immune mechanism MM tomosynthesis screening BI Today Z12.31 - Encounter for screening mammogram for malignant neoplasm of breast Hemoglobin A1c Today E66.09 - Other obesity due to excess calories, F41.9 - Anxiety disorder, unspecified, I10 - Essential (primary) hypertension, Z13.228 - Encounter for screening for other metabolic disorders, Z86.2 - Personal history of diseases of the blood and blood-forming organs and certain disorders involving the immune mechanism Vitamin B12 and Folate Today E66.09 - Other obesity due to excess calories, F41.9 - Anxiety disorder, unspecified, I10 - Essential (primary) hypertension, Z13.228 - Encounter for screening for other metabolic disorders, Z86.2 - Personal history of diseases of the blood and blood-forming organs and certain disorders involving the immune mechanism Referrals [employer]PER[employer] Referral Z12.4 - Encounter for screening for malignant neoplasm of cervix Medications: New Zepbound (tirzepatide (weight loss)) 7.5 mg (0.5 mL) subcut QWEEK 2 mL 3RF NS
[2025-10-04 10:21] VITALS: BP 143/79; PULSE 64; RESP 16; TEMP 36.8; O2SAT 99; BMI 58.5
[2025-10-04 10:29] VITALS: BP 136/81
== END 2025-10-04 10:57 | disposition home or self-care (01) ==
LOC: HO.HMCFM 10:08
PROVIDERS: PCP Internal Medicine; Visit Provider Internal Medicine
DX: Z00.00 Encounter for general adult medical examination without abnormal findings (principal); E66.09 Other obesity due to excess calories; I10 Essential (primary) hypertension

== ENCOUNTER → 2025-10-04 10:08 | Outpatient (BNVA) | payer OTHER, SELFPAY | PROVIDERS: PCP Internal Medicine; Visit Provider Internal Medicine | DX: Z00.00 Encounter for general adult medical examination without abnormal findings (principal); I10 Essential (primary) hypertension; E66.09 Other obesity due to excess calories; Z68.43 Body mass index [BMI] 50.0-59.9, adult; Z71.3 Dietary counseling and surveillance; F41.9 Anxiety disorder, unspecified | CPT/HCPCS: 99212 ==